=== PATIENT | female | born 1995 | race Asian ===

== ENCOUNTER 2018-10-11 20:15 | Emergency (ER) | payer BC ==
[~2018-10-11] VITALS: Ht 157.5 cm; Wt 59.9 kg
[2018-10-11 20:20] VITALS: BP_SYST 122
[2018-10-11] MEDS ORDERED: METHOCARBAMOL 500 MG TABLET PO ONE (23:15)
[2018-10-11] MEDS ORDERED: KETOROLAC TROMETHAMINE 60 MG/2 ML VIAL IM ONE (23:15)
[2018-10-12 00:45] VITALS: BP_SYST 122
== END 2018-10-12 00:45 | disposition home or self-care (01) ==
LOC: SED 20:15
DX: G44.209 Tension-type headache, unspecified, not intractable (principal); F17.210 Nicotine dependence, cigarettes, uncomplicated; F41.9 Anxiety disorder, unspecified; Z86.2 Personal history of diseases of the blood and blood-forming organs and certain disorders involving the immune mechanism
CPT/HCPCS: 96372; 99283; J1885